=== PATIENT | male | born 1980 | race African-American/Black ===

== ENCOUNTER 2019-02-06 01:42 | Emergency (ER) | payer OTHER ==
[2019-02-06] MEDS ORDERED: Cyclobenzaprine TAB* 10 MG PO ONE (02:26)
[2019-02-06] MEDS ORDERED: Ketorolac INJ* 30 MG/ML 1 ML VIAL IM ONE (02:26)
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
[2019-02-06 03:10] VITALS: BP 138/90
== END 2019-02-06 03:08 | disposition home or self-care (01) ==
LOC: ED 01:42
DX: M54.5 Low back pain (principal); I10 Essential (primary) hypertension; K21.9 Gastro-esophageal reflux disease without esophagitis
CPT/HCPCS: 96372; 99282; A9270-GY; J1885

== ENCOUNTER 2019-08-04 18:50 | Emergency (ER) | payer MEDICAID, OTHER ==
[2019-08-04 19:06] VITALS: BP 139/83
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
--- NOTE | 2019-08-05 07:59 | UC ---
- Progress Note Progress Note: wet read correct Course/Dx - Diagnoses Provider Diagnoses: Pain of left heel Discharge ED - Sign-Out/Discharge Documenting (check all that apply): Post-Discharge Follow Up All imaging exams completed and their final reports reviewed: Yes - Discharge Plan Condition: Stable Disposition: HOME Patient Education Materials: Plantar Fasciitis Exercises (GEN), Plantar Fasciitis (ED), Achilles Tendinitis (ED) Referrals: [facility] [Provider Group] Bernardino Moeller DPM [Doctor of Podiatric Medicine] - Keira Bach NP [Primary Care Provider] - Jesi Lucio DPM [Doctor of Podiatric Medicine] - Adan Hsu MD [Medical Doctor] - Additional Instructions: FOLLOW UP WITH EITHER SPORTS MEDICINE OR ORTHOPEDICS OR PODIATRY. WEAR ARCH SUPPORTS IN ALL YOUR SHOES. ICE THE PAINFUL AREAS. GET REEVALUATED SOONER IF NOT IMPROVED OR WORSE OR ANY QUESTIONS OR CONCERNS. - Billing Disposition and Condition Condition: STABLE Disposition: Home
== END 2019-08-04 19:51 | disposition home or self-care (01) ==
LOC: UCEAST 18:50
DX: M25.572 Pain in left ankle and joints of left foot (principal); M77.32 Calcaneal spur, left foot; M65.872 Other synovitis and tenosynovitis, left ankle and foot
CPT/HCPCS: 99211; G0463

== ENCOUNTER 2019-08-11 21:08 | Emergency (ER) | payer OTHER ==
[2019-08-11 21:21] VITALS: BP 133/74
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
[2019-08-11] MEDS ORDERED: Amoxicillin/Clavulanate TAB* 875 MG PO ONE (21:44)
== END 2019-08-11 21:55 | disposition home or self-care (01) ==
LOC: UCEAST 21:08
DX: J01.90 Acute sinusitis, unspecified (principal); R53.83 Other fatigue
CPT/HCPCS: 99212; A9270-GY; G0463